=== PATIENT | female | born 1985 | race Two or more races ===

== ENCOUNTER 2024-01-19 21:42 | Emergency (ER) | payer MEDICAID, OTHER ==
[~2024-01-19] VITALS: Ht 170.2 cm; Wt 110.4 kg
[2024-01-20] MEDS ORDERED: IBUP-1455 PO (00:15)
[2024-01-20] MEDS ORDERED: HYDR-4902 PO (00:15)
[2024-01-20 03:10] VITALS: BP 104/59; PULSE 66; RESP 16; TEMP 98; O2SAT 97
[2024-01-20] MEDS: KETOROLAC TROMETH 60MG/2ML VIAL IM ONE (03:25)
[2024-01-20] MEDS: CYCLOBENZAPRINE HCL 10 MG TAB PO ONE (03:25)
== END 2024-01-20 03:36 | disposition home or self-care (01) ==
LOC: ER 21:42
DX: S16.1XXA Strain of muscle, fascia and tendon at neck level, initial encounter (principal); S20.219A Contusion of unspecified front wall of thorax, initial encounter; E66.01 Morbid (severe) obesity due to excess calories; Z68.38 Body mass index [BMI] 38.0-38.9, adult; V89.2XXA Person injured in unspecified motor-vehicle accident, traffic, initial encounter; Y93.I9 Activity, other involving external motion; Y92.89 Other specified places as the place of occurrence of the external cause; Y99.8 Other external cause status
CPT/HCPCS: 71046; 72040; 96372; 99284; J1885